=== PATIENT | female | born 1985 | race Asian ===

== ENCOUNTER 2018-10-28 14:05 | Emergency (ER) | payer BC, OTHER ==
[2018-10-28 14:29] VITALS: TEMP 99; BMI 28.3
[2018-10-28 14:48] LABS: URINE APPEARANCE CLEAR; URINE BILIRUBIN NEGATIVE (NEGATIVE); URINE COLOR YELLOW
[2018-10-28 14:49] LABS: PH,URINE 5.5 (4.5-8); URINE GLUCOSE (UA) NEGATIVE (NEGATIVE); URINE KETONE NEGATIVE (NEGATIVE); URINE LEUK ESTERASE NEAGTIVE (NEGATIVE); URINE NITRITE NEGATIVE (NEGATIVE); URINE PROTEIN NEGATIVE (NEGATIVE); URINE UROBILINOGEN 0.2 (0.2-1.0)
[2018-10-28 14:54] LABS: HCG,QUALITATIVE URINE NEGATIVE
--- NOTE | 2018-10-28 14:54 | PDOC ---
History of Present Illness - General Chief Complaint: Pain Stated Complaint: ABDOMINAL PAIN AND BACK PAIN Time Seen by Provider: 10/28/18 14:12 History Source: Patient Exam Limitations: No Limitations - History of Present Illness Initial Comments: 10/28/18 14:48 33 yo F with a hx of MS (last flare 2 years ago), fibromyalgia (currently on cymbalta), suspected SLE (currently on plaquenil for 1 month; followed by Dr. Figueroa), asthma, chronic back pain, and endometriosis (5x surgical interventions with 2x ileostomies; hysterectomy with remaining left ovary) presents to the emergency department with right lower back acute on chronic pain that radiates to the RLQ and right anterior thigh. Per the patient, she states the acuteness was sudden onset without an inciting event prior. She states its currently 8/10 , sharp, constant, and without relief with robaxin and toradol. She states it is similar to her endometriosis pain, but with worse severity. She states she has been having nausea and vomiting throughout the weekend with constipation and diarrhea. She admits to difficulties in the past 3 days, but denies sensation of incomplete voids, dysuria, and hematuria. Denies the following: FND , fevers, chills, chest pain, SOB, hematochezia, ataxia, visual changes, spastic movements, and hx of nephrolithiasis. Allergies: PCN 10/28/18 15:25 Past History - Past Medical History Allergies/Adverse Reactions: Allergies Allergy/AdvReac Type Severity Reaction Status Date / Time Penicillins AdvReac Intermediate Nausea Verified 10/28/18 14:07 Home Medications: Ambulatory Orders Diazepam [Valium] 2 mg PO ASDIR 10/28/18 Duloxetine HCl [Cymbalta] 120 mg PO DAILY 10/28/18 Glatiramer Acetate [Copaxone] 1 dose SQ ASDIR 10/28/18 Hydroxychloroquine Sulfate [Plaquenil] 200 mg PO DAILY 10/28/18 COPD: No Other medical history: MS, BEING WORKED UP FOR LUPUS, ENDOMETRIOSIS - Suicide/Smoking/Psychosocial Hx Smoking History: Never smoked Information on smoking cessation initiated: No Hx Alcohol Use: No Drug/Substance Use Hx: No Review of Systems - Review of Systems Able to Perform ROS?: Yes Is the patient limited Yi proficient: No Constitutional: No: Chills, Diaphoresis, Fever, Weakness HEENTM: No: Eye Pain, Ear Pain, Hearing Loss, Throat Pain, Mouth Pain Respiratory: No: Cough, Shortness of Breath Cardiac (ROS): No: Chest Pain, Irregular Heart Rate, Lightheadedness, Palpitations, Syncope ABD/GI: Yes: Constipated, Diarrhea, Abdominal cramping. No: Nausea, Rectal Bleeding, Vomiting, Tarry Stools : No: Burning, Dysuria, Frequency, Hematuria Musculoskeletal: Yes: Back Pain. No: Joint Pain, Neck Pain Integumentary: No: Bruising, Erythema, Pruritus, Rash Neurological: No: Headache, Numbness, Tingling, Tremors, Ataxia Psychiatric: Yes: Anxiety, Depression, Stressors Endocrine: No: Unexplained Weight Gain Hematologic/Lymphatic: No: Anemia *Physical Exam - Vital Signs Last Vital Signs Temp Pulse Resp BP Pulse Ox 99 F 104 H 18 139/93 100 10/28/18 14:07 10/28/18 14:07 10/28/18 14:07 10/28/18 14:07 10/28/18 14:07 - Physical Exam General Appearance: Yes: Nourished, Appropriately Dressed. No: Apparent Distress, Intoxicated, Cachetic HEENT: positive: EOMI, TUNDE, Normal Voice, Symmetrical, Pharynx Normal, Hearing Grossly Normal. negative: Pale Conjunctivae, Scleral Icterus (R), Scleral Icterus (L), Muffled/Hoarse voice, Pharyngeal Erythema, Tonsillar Exudate, Tonsillar Erythema, Excessive drooling Neck: positive: Trachea midline, Supple. negative: Tender, Lymphadenopathy (R) , Lymphadenopathy (L), Rigidity, Tender lateral, Tender midline Respiratory/Chest: positive: Lungs Clear, Normal Breath Sounds. negative: Chest Tender, Respiratory Distress, Accessory Muscle Use, Rhonchi, Stridor, Wheezing, Hyperresonant Cardiovascular: positive: Regular Rhythm, Regular Rate, S1, S2. negative: Systolic Murmur Gastrointestinal/Abdominal: positive: Normal Bowel Sounds, Tender (RLQ), Flat, Soft, Other (multiple surgical scars. no rash). negative: Guarding, Rebound Lymphatic: negative: Adenopathy Musculoskeletal: positive: Normal Inspection. negative: CVA Tenderness, CVA Tenderness (R), CVA Tenderness (L), Decreased Range of Motion, Vertebral Tenderness Extremity: positive: Normal Capillary Refill, Normal Inspection, Normal Range of Motion. negative: Tender, Swelling, Calf Tenderness Integumentary: positive: Normal Color, Dry, Warm Neurologic: positive: bean snapper II-XII NML intact, Fully Oriented, Alert, Normal Mood/ Affect, Normal Response, Motor Strength 5/5, Responsive, Finger to Nose (no deficit), Other (negative romberg). negative: EOM Palsy, Facial Droop, Sensory Deficit Moderate Sedation - Procedure Monitoring Vital Signs: Procedure Monitoring Vital Signs Temperature 99 F 10/28/18 14:07 Pulse Rate 104 H 10/28/18 14:07 Respiratory Rate 18 10/28/18 14:07 Blood Pressure 139/93 10/28/18 14:07 O2 Sat by Pulse Oximetry (%) 100 10/28/18 14:07 ED Treatment Course - LABORATORY CBC & Chemistry Diagram: 10/28/18 15:05 10/28/18 15:05 Medical Decision Making - Medical Decision Making 33 yo F with a hx of MS (last flare 2 years ago), fibromyalgia (currently on cymbalta), suspected SLE (currently on plaquenil for 1 month; followed by Dr. Figueroa), asthma, chronic back pain, and endometriosis (5x surgical interventions with 2x ileostomies) presents to the emergency department with right lower back acute on chronic pain that radiates to the RLQ and right anterior thigh. Initial vitals: Initial Vital Signs Temp Pulse Resp BP Pulse Ox 99 F 104 H 18 139/93 100 10/28/18 14:07 10/28/18 14:07 10/28/18 14:07 10/28/18 14:07 10/28/18 14:07 ddx: UTI vs Nephrolithiasis vs pyelonephritis vs SBO vs colitis vs msk strain vs fibromyaglia flare vs endometriosis flare. Per the patient, she does not have periods, but feels she may be due to "breast engorgement" Will order cbc, cmp, UA, urine , urine culture. will get CT abd/pelvis with oral and IV contrast with creatinine and status permitting Interventions: valium, tylenol, and lidocaine. 10/28/18 15:25 *DC/Admit/Observation/Transfer Diagnosis at time of Disposition: Radicular pain of right lower back - Discharge Dispostion Disposition: HOME Condition at time of disposition: Stable Decision to Admit order: No - Referrals Referrals: [facility] [Provider Group] Anabel Toribio MD [Staff Physician] - - Patient Instructions Printed Discharge Instructions: DI for Low Back Pain Additional Instructions: You were seen for the evaluation of your pain. your ct shows a cyst structure that is [id number] cm that was not their previously per jackson. please follow up with your obgyn doctor within 1 week after discharge for follow up care and management. please follow up with them or with the one referred to you. please take tylenol and motrin as prescribed for pain management. please return to the emergency department if you have worsening pain or new concerning symptoms such as fevers, chills, nausea and uncontrolled vomiting, and worsening abdominal pain. thank you. - Post Discharge Activity
[2018-10-28] MEDS ORDERED: ACETAMINOPHEN 1000 MG/100 ML VIAL (NON FORMULARY) IVPB ONE (14:56)
[2018-10-28] MEDS ORDERED: LIDOCAINE 5% TOPICAL PATCH TP ONE (14:56)
[2018-10-28] MEDS ORDERED: diazePAM CARPU-JECT 10 MG/2 ML DISP.SYRIN IVPUSH ONE (14:56)
[2018-10-28] MEDS ORDERED: ONDANSETRON 4 MG/2 ML VIAL IVPUSH ONE (15:04)
[2018-10-28] MEDS ORDERED: diazePAM 2 MG TABLET ONE (15:11)
[2018-10-28] MEDS ORDERED: ONDANSETRON 4 MG/2 ML VIAL ONE (15:11)
[2018-10-28] MEDS ORDERED: ACETAMINOPHEN INJECTION 100 ML IVPB ONE (15:11)
[2018-10-28] MEDS ORDERED: diazePAM 2 MG TABLET PO ONE (15:11)
[2018-10-28] MEDS ORDERED: LIDOCAINE 5% TOPICAL PATCH ONE (15:12)
[2018-10-28 15:25] LABS: BASO % 0.7 % (0-2.0); EOS % 5.6 % (0-4.5); HEMATOCRIT 37.2 % (32.4-45.2); HEMOGLOBIN 12.6 GM/dl (10.7-15.3); LYMPH % 21.8 % (8-40); MCH 30.5 pg (25.7-33.7); MCHC 33.9 g/dl (32.0-36.0); MEAN PLT VOLUME 8.8 fl (7.5-11.1); MONO % 8.4 % (3.8-10.2); NEUT % 63.5 % (42.8-82.8); PLATELET COUNT 275 K/MM3 (134-434); RBC 4.13 M/mm3 (3.60-5.2); RDW 11.9 % (11.6-15.6); WHITE BLOOD COUNT 7.8 K/mm3 (4.0-10.8)
[2018-10-28 15:33] LABS: ALBUMIN 3.8 g/dl (3.4-5.0); ALK PHOS 68 U/L (45-117); ANION GAP 4 MMOL/L (8-16); BILIRUBIN,TOTAL 0.5 mg/dl (0.2-1); BLOOD UREA NITROGEN 9 mg/dl (7-18); CALCIUM 8.8 mg/dl (8.5-10); CHLORIDE 105 mmol/L (98-107); CO2 24 mmol/L (21-32); CREATININE 0.7 mg/dl (0.55-1.3); GLUCOSE,RANDOM 108 mg/dl (74-106); POTASSIUM 4.2 mmol/L (3.5-5.1); SGOT/AST 20 U/L (15-37); SGPT/ALT 12 U/L (13-61); SODIUM 133 mmol/L (136-145)
[2018-10-28] MEDS ORDERED: morphine CARPU-JECT 4 MG/1 ML DISP.SYRIN IVPUSH ONE (16:03)
[2018-10-28] MEDS ORDERED: morphine SULFATE 4 MG/ML VIAL ONE (16:08)
--- NOTE | 2018-10-28 16:14 | PDOC ---
Attending Attestation - Resident Resident Name: Mateo Newell - ED Attending Attestation I have performed the following: I have examined & evaluated the patient, The case was reviewed & discussed with the resident, I agree w/resident's findings & plan, Exceptions are as noted - HPI HPI: 10/28/18 16:09 33 F with h/o MS (last flare 2 years ago), fibromyalgia (currently on cymbalta) , suspected SLE (currently on plaquenil for 1 month; followed by Dr. Figueroa), asthma, chronic back pain, and endometriosis (5x surgical interventions with 2x ileostomies; hysterectomy with remaining left ovary), presenting to ED with abdominal pain. Pt reports pain radiating from her RLQ to her R flank and down her R leg. Denies F/C. Denies N/V/D. Pt states that it feels like her endometriosis pain, but this pain has lasted 5 days. Typically her endometriosis flares last about 3 days. - Physicial Exam PE: 10/28/18 16:12 "GENERAL: Awake, alert, and fully oriented, in no acute distress. HEAD: No signs of trauma EYES: PERRLA, EOMI, sclera anicteric, conjunctiva clear ENT: Auricles normal inspection, hearing grossly normal, nares patent, oropharynx clear without exudates. Moist mucosa NECK: Nontender, no stepoffs, Normal ROM, supple, no lymphadenopathy, JVD, or masses LUNGS: Breath sounds equal, clear to auscultation bilaterally. No wheezes, and no crackles HEART: Regular rate and rhythm, normal S1 and S2, no murmurs, rubs or gallops ABDOMEN: + RLQ TTP, normoactive bowel sounds. No guarding, no rebound. No masses EXTREMITIES: Normal range of motion, no edema. No clubbing or cyanosis. No cords, erythema, or tenderness NEUROLOGICAL: Cranial nerves II through XII intact. 5/5 strength and sensation in all extremities, Normal speech, normal gait, normal cerebellar function SKIN: Warm, Dry, normal turgor, no rashes or lesions noted. - Medical Decision Making 10/28/18 16:13 33 F with abdominal, back, and leg pain. Possible endometriosis flare. However, pt has had multiple surgeries. Will need to r/o SBO or other acute intraabdominal process. - Labs, UA - CTAP - IVF, pain control 10/28/18 18:[address] with large cystic structure, likely chronic. Pt reports complete resolution of pain at this time. Repeat abdominal exam benign. Offered pt admission for OB evaluation or possible transfer to other hospital, but pt declines, stating she feels much better. Given improvement in pain, will DC at this time. 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 Pt is well appearing, with normal vitals. Clinically stable for DC at this time. I discussed the physical exam findings, ancillary test results and final diagnoses with the patient. I answered all of the patient's questions. The patient was satisfied with the care received and felt comfortable with the discharge plan and treatment plan. The patient agrees to follow up with the primary care physician within 24-72 hours.
[2018-10-28 17:16] LABS: EPI CELLS FEW /HPF; URINE BACTERIA 2+ /hpf (NEGATIVE); URINE WBC 0-2 /hpf (3-5)
--- NOTE | 2018-10-28 21:44 | CONSULT ---
Consult Consult Specialty:: General Surgery - Alcohol/Substance Use Hx Alcohol Use: No - Smoking History Smoking history: Never smoked Home Medications - Allergies Allergies/Adverse Reactions: Allergies Allergy/AdvReac Type Severity Reaction Status Date / Time Penicillins AdvReac Intermediate Nausea Verified 10/28/18 14:07 - Home Medications Home Medications: Ambulatory Orders Diazepam [Valium] 2 mg PO ASDIR 10/28/18 Duloxetine HCl [Cymbalta] 120 mg PO DAILY 10/28/18 Glatiramer Acetate [Copaxone] 1 dose SQ ASDIR 10/28/18 Hydroxychloroquine Sulfate [Plaquenil] 200 mg PO DAILY 10/28/18 Morphine Oral Concentrate [Roxanol 20 mg/mL Liquid -] 10 mg PO Q4H PRN #20 ml MDD 60 mg 10/28/18 Physical Exam Vital Signs: Vital Signs Temperature 99 F 10/28/18 14:07 Pulse Rate 78 10/28/18 16:11 Respiratory Rate 16 10/28/18 16:11 Blood Pressure 141/105 H 10/28/18 16:11 O2 Sat by Pulse Oximetry (%) 100 10/28/18 16:11 Labs: CBC, BMP 10/28/18 15:05 10/28/18 15:05
[2018-10-28] MEDS ORDERED: LIDOCAINE PATCH REMOVAL MC SCH (22:00)
[2018-10-29 04:38] VITALS: BP 136/86; PULSE 69
== END 2018-10-28 20:35 | disposition home or self-care (01) ==
LOC: FER 14:05
PROC: 3E033NZ Introduction of Analgesics, Hypnotics, Sedatives into Peripheral Vein, Percutaneous Approach (ICD-10-PCS; principal; 2018-10-28)
PROC: 3E033GC Introduction of Other Therapeutic Substance into Peripheral Vein, Percutaneous Approach (ICD-10-PCS; 2018-10-28)
DX: M54.16 Radiculopathy, lumbar region (principal); G35 Multiple sclerosis; M79.7 Fibromyalgia; M32.9 Systemic lupus erythematosus, unspecified
CPT/HCPCS: 36415; 74177-TC; 80053; 81003; 84703; 85025; 87086; 99283-25; J0131